=== PATIENT | male | born 1990 | race Caucasian/White ===

== ENCOUNTER 2021-12-16 02:12 | Emergency (ER) | payer SELFPAY | END 2021-12-16 02:37 | disposition home or self-care (01) | LOC: MW.ED 02:12 | DX: Z02.9 Encounter for administrative examinations, unspecified (principal) | CPT/HCPCS: 99282 ==

== ENCOUNTER 2021-12-28 18:25 | Emergency (ER) | payer SELFPAY | END 2021-12-28 19:03 | LOC: MW.ED 18:25 | DX: F10.129 Alcohol abuse with intoxication, unspecified (principal) | CPT/HCPCS: 99282; 99283 ==